=== PATIENT | female | born 1970 | race Caucasian/White ===

== ENCOUNTER 2024-12-03 17:16 | Emergency (ER) | payer MEDICARE, MEDICAID ==
[~2024-12-03] VITALS: Ht 157.5 cm; Wt 63.0 kg
[2024-12-03 17:45] VITALS: TEMP 97.8
[2024-12-03] MEDS ORDERED: OxyCODONE HCL 20 MG ER TABLET PO ONE (19:30)
[2024-12-03] MEDS: OxyCODONE HCL 5 MG IR TABLET PO ONE (19:37)
[2024-12-03] MEDS: KETOROLAC TROMETHAMINE 30 MG/ML VIAL IM ONE (19:38)
[2024-12-03] MEDS ORDERED: OXYC10TA92 PO (20:34)
[2024-12-03] MEDS ORDERED: IBUP-1492 PO (20:34)
[2024-12-03] MEDS ORDERED: METH-659 PO (20:34)
[2024-12-03] MEDS ORDERED: NALO4SPR NASAL (20:36)
[2024-12-03 21:02] VITALS: BP 112/68; PULSE 72; RESP 18; O2SAT 99
== END 2024-12-03 21:12 | disposition home or self-care (01) ==
LOC: EMS 17:16
DX: M75.101 Unspecified rotator cuff tear or rupture of right shoulder, not specified as traumatic (principal); F41.9 Anxiety disorder, unspecified; F32.A Depression, unspecified; K21.9 Gastro-esophageal reflux disease without esophagitis; Z88.0 Allergy status to penicillin; Z88.5 Allergy status to narcotic agent; Z90.49 Acquired absence of other specified parts of digestive tract; Z90.710 Acquired absence of both cervix and uterus; Z98.890 Other specified postprocedural states
CPT/HCPCS: 99283; 96372; J1885